=== PATIENT | male | born 1990 | race Caucasian/White ===

== ENCOUNTER 2017-08-17 09:18 | Emergency (ER) | payer OTHER ==
--- NOTE | 2017-08-17 09:40 | EDM.PDOC ---
ED HPI GENERAL MEDICAL PROBLEM - General Chief Complaint: Respiratory Problem Stated Complaint: FLU LIKE SYMPTOMS Time Seen by Provider: 08/17/17 09:40 Source of Information: Reports: Patient History Limitations: Reports: No Limitations - History of Present Illness INITIAL COMMENTS - FREE TEXT/NARRATIVE: 27-year-old male presents to the ED due to upper spine Mitesh tract infection starting 5 days ago. Associated severe paroxysmal cough with intermittent sputum production. No hemoptysis. Associated intermittent vomiting. He states it 's been mostly food half hour after he eats. Associated fever and chills particularly the night before last. Harsh paroxysmal cough with sore throat. No diarrhea. He states he does feel like he is wheezing at times. He does not smoke cigarettes. 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 He was seen at the walk-in clinic last night given Zofran for nausea which has helped in terms that he has not vomited since. He was not tested for anything else. Onset: Sudden Onset Date: 08/12/17 Duration: Day(s): Location: Reports: Chest (Severe paroxysmal cough with intermittent vomiting.), Generalized (Generalized myalgia. Mild headache.) Quality: Reports: Ache Severity: Moderate Improves with: Reports: Other (Taking DayQuil during the day and NyQuil at nighttime which helps him sleep.) Worsens with: Reports: Other (Eating makes them worse.) Context: Reports: Sick Contact. 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 Denies: No Other Symptoms, Confusion (From coughing so much particularly upper anterior chest.), Diaphoresis, Rash, Seizure, Shortness of Breath, Syncope Treatments RAVELER: Reports: Acetaminophen (In date: NyQuil.) Other Treatments RAVELER: dayquil - Related Data Allergies Allergy/AdvReac Type Severity Reaction Status Date / Time No Known Allergies Allergy Verified 08/17/17 09:26 Home Meds: Home Meds Chlorpheniramine/HYDROcodone [Tussionex Pennkinetic] 5 ml PO ASDIRECTED PRN #60 ml 08/17/17 [Rx] Nausea Pill? 08/17/17 [History] Oseltamivir [Tamiflu] 75 mg PO BID #10 cap 08/17/17 [Rx] Social & Family History - Living Situation & Occupation Living situation: Reports: Single Occupation: Employed ED ROS GENERAL - Review of Systems Review Of Systems: See Below Constitutional: Reports: Fever, Chills, Malaise, Weakness, Fatigue, Decreased Appetite HEENT: Reports: Throat Pain Respiratory: Reports: Shortness of Breath, Wheezing, Cough, Sputum. Denies: Pleuritic Chest Pain, Hemoptysis Cardiovascular: Reports: No Symptoms Endocrine: Reports: No Symptoms GI/Abdominal: Reports: Nausea (Spontaneous vomiting often half hour after each eye each.), Vomiting. Denies: Diarrhea : Reports: No Symptoms Musculoskeletal: Reports: Muscle Pain Skin: Reports: No Symptoms Neurological: Reports: Headache (ild headache worsened by coughing.) Psychiatric: Reports: No Symptoms Hematologic/Lymphatic: Reports: No Symptoms Immunologic: Reports: No Symptoms ED EXAM, GENERAL - Physical Exam Exam: See Below Exam Limited By: No Limitations General Appearance: Alert, WD/WN, Other (Does feel mildly warm to palpation.) Eye Exam: Bilateral Eye: Normal Inspection Ears: Normal TMs Throat/Mouth: Other (Oropharynx is diffusely erythematous with prominence of wall bars ring.) Head: Atraumatic ( Tonsils are absent.), Normocephalic Neck: Normal Inspection, Supple, Non-Tender, Full Range of Motion. No: Lymphadenopathy (L), Lymphadenopathy (R) Respiratory/Chest: No Accessory Muscle Use, Respiratory Distress, Rhonchi ( wheezing mostly anterior chest.are bronchi left upper posterior lobe of lung. ) , Wheezing (Mild tachypnea at rest. O2 sats 100% on room air) Cardiovascular: Normal Peripheral Pulses, Regular Rate, Rhythm, No Edema, No Gallop, No Murmur, No Rub Back Exam: Normal Inspection, Full Range of Motion. No: CVA Tenderness (L), CVA Tenderness (R) Extremities: Normal Inspection, Normal Range of Motion, Non-Tender, No Pedal Edema Neurological: Alert, Oriented, CN II-XII Intact, Normal Cognition Psychiatric: Normal Affect, Normal Mood Skin Exam: Warm, Dry, Intact, Normal Color, No Rash Course - Vital Signs Last Recorded V/S: Last Vital Signs Temp 36.8 C 08/17/17 09:26 Pulse 74 08/17/17 09:26 Resp 20 08/17/17 09:26 BP 124/85 08/17/17 09:26 Pulse Ox 100 08/17/17 09:56 - Orders/Labs/Meds Orders: Active Orders 24 hr Category Date Time Status RT Aerosol Therapy [RC] ASDIRECTED Care 08/17/17 09:47 Active Chest 1V Frontal [CR] Stat Exams 08/17/17 09:48 Taken CULTURE STREP A CONFIRMATION [RM] Stat Lab 08/17/17 09:50 Results INFLUENZA A+B AG SCREEN [RM] Stat Lab 08/17/17 09:33 Ordered STREP SCRN A RAPID W CULT CONF [] Stat Lab 08/17/17 09:50 Ordered Meds: Medications Discontinued Medications Generic Name Dose Route Start Last Admin Trade Name Freq PRN Reason Stop Dose Admin Albuterol/Ipratropium 3 ml 08/17/17 09:47 08/17/17 09:55 Duoneb 3.0-0.5 Mg/3 Ml NEB 08/17/17 09:48 3 ml ONETIME ONE Administration - Radiology Interpretation Free Text/Narrative:: 19-year-old male presents the ED with a 5 day history of illness. Seem to gotten much worse over the last 48 hours with fever chills riders. Associated generalized myalgia mild associated headache worsened by coughing. Coughing is paroxysmal and intermittently productive of sputum. No hemoptysis. Intermittent nausea and vomiting usually half hour after eating. Diarrhea. Chest hurts from coughing so much. Exam reveals diffuse oropharyngeal inflammation. No lymphadenopathy. He is mildly febrile at time of my exam. Chest shows scattered rhonchi particularly left upper posterior lobe. Intermittent wheezing best heard anterior upper lobes. Benign abdominal exam. 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 This would be working diagnosis as well. Rapid strep screen influenza screen will be done. One view chest x-ray to be done. He'll be given a DuoNeb treatment to ease his wheezing. - Re-Assessments/Exams Free Text/Narrative Re-Assessment/Exam: 08/17/17 10:16 1 view chest x-ray is been completed. Cardiac silhouette is within normal limits. He has peribronchial cuffing particular noted while in the right hilar area. Often and of evidence of pneumonia. Rapid strep screen came back negative. Influenza screen is pending. 08/17/17 10:23 influenza screen came back positive for type B. I will therefore discharge the patient on Tamiflu 75 mg twice a day for the next 5 days. Also Tussionex cough syrup 5 mils every 12 hours necessary for cough relief. He will continue Motrin 6 mg every 6 hours to reduce headache and body aches and fever. Tentatively he should be markedly improved in 48 hours time. She is to try and continue to work. Therefore no no will be given Departure - Departure Time of Disposition: 10:24 Disposition: Home, Self-Care 01 Condition: Fair Clinical Impression: Influenza B - Discharge Information Prescriptions: Chlorpheniramine/HYDROcodone [Tussionex Pennkinetic] 5 ml PO ASDIRECTED PRN #60 ml PRN Reason: cough relief Oseltamivir [Tamiflu] 75 mg PO BID #10 cap Instructions: Influenza, Adult, [id number] Referrals: PCP,None [Primary Care Provider] - Forms: ED Department Discharge, ED Return to Work/School Form Additional Instructions: Evaluation in the emergency room today in regards to acute upper respiratory tract infection with severe paroxysmal cough generalized myalgia mild headache and associated intermittent nausea and vomiting. These are most of the signs and symptoms of influenza type B which you identified 3 of your coworkers have had or tested positive. Examination today revealed her throat to be very red and inflamed most likely from coughing so much. A rapid strep screen proved to be negative. Influenza screen was positive for the type B infection. Chest x- ray was negative for pneumonia. Treatment is therefore plenty of fluids and diet as tolerable. May continue to use the Zofran sublingual every 6 hours as needed for relief of nausea or vomiting. Treatment of the influenza is Tamiflu antiviral medication 75 mg twice daily for the next 5 days. Should start to feel markedly improved after the third or fourth tablet of Tamiflu. Motrin 600 mg every 6 hours as needed for relief of headache bodyache and fever until the Tamiflu becomes fully effective. No other medication prescribed is Tussionex cough syrup 5 mils every 12 hours as needed for cough relief. Take it about an hour before you're planning to go to bed as it takes a good hour to work but usually will get used to the night without coughing much. The cough from influenza will go on for about 2 weeks. - My Orders Last 24 Hours: My Active Orders 08/17/17 09:33 INFLUENZA A+B AG SCREEN [RM] Stat 08/17/17 09:47 RT Aerosol Therapy [RC] ASDIRECTED 08/17/17 09:48 Chest 1V Frontal [CR] Stat 08/17/17 09:50 CULTURE STREP A CONFIRMATION [RM] Stat STREP SCRN A RAPID W CULT CONF [RM] Stat - Assessment/Plan Last 24 Hours: My Active Orders 08/17/17 09:33 INFLUENZA A+B AG SCREEN [RM] Stat 08/17/17 09:47 RT Aerosol Therapy [RC] ASDIRECTED 08/17/17 09:48 Chest 1V Frontal [CR] Stat 08/17/17 09:50 CULTURE STREP A CONFIRMATION [RM] Stat STREP SCRN A RAPID W CULT CONF [] Stat
[2017-08-17] MEDS ORDERED: Albuterol/Ipratropium 3.0-0.5 MG/3 ML Neb Soln NEB ONE (09:47)
--- NOTE | 2017-08-17 15:33 | CR ---
Chest: Frontal view of the chest was obtained. Comparison: No prior study. Heart size is slightly enlarged. Upper mediastinum is normal. Lungs are clear. Bony structures are grossly intact. Impression: 1. Heart size is slightly enlarged. Please correlate if there is any history of murmur. Echocardiogram could be considered to further evaluate. 2. Nothing acute is otherwise seen on frontal chest x-ray. Diagnostic code #3
== END 2017-08-17 10:35 | disposition home or self-care (01) ==
LOC: JD.ED 09:18
DX: J10.1 Influenza due to other identified influenza virus with other respiratory manifestations (principal)
CPT/HCPCS: 71045; 71045-26; 87081; 87430; 87804; 94640; 99283; 99284-25